=== PATIENT | male | born 1985 | race Caucasian/White ===

== ENCOUNTER 2018-03-08 11:47 | Emergency (ER) | payer SELFPAY ==
[~2018-03-08] VITALS: Ht 172.7 cm; Wt 76.0 kg
[2018-03-08 11:55] VITALS: BP 137/75
[2018-03-08] MEDS ORDERED: DIPH,PERTUSS(ACELL),TET VAC/PF 0.5 ML IM-VACC ONE (12:30)
== END 2018-03-08 13:20 | disposition left against medical advice (07) ==
LOC: ED 12:00
DX: S02.609B Fracture of mandible, unspecified, initial encounter for open fracture (principal); Y04.0XXA Assault by unarmed brawl or fight, initial encounter; Y93.89 Activity, other specified; Y92.410 Unspecified street and highway as the place of occurrence of the external cause; Y99.8 Other external cause status
CPT/HCPCS: 99283

== ENCOUNTER 2019-05-09 16:31 | Emergency (ER) | payer SELFPAY ==
[~2019-05-09] VITALS: Ht 177.8 cm; Wt 79.5 kg
[2019-05-09 16:53] VITALS: BP 95/58
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
[2019-05-09 17:41] LABS: BASOPHILS # (AUTO) 0.04 x10^3/uL (0-0.1); BASOPHILS % (AUTO) 0 % (0-1); EOSINOPHILS # (AUTO) 0.12 x10^3/uL (0-0.4); EOSINOPHILS % (AUTO) 1 % (1-7); LYMPHOCYTES # (AUTO) 1.35 x10^3/uL (1-3.4); LYMPHOCYTES % (AUTO) 12 % (22-44); MD NO; MEAN CORPUSCULAR HEMOGLOBIN 29.2 pg (27.5-34.5); MEAN CORPUSCULAR HGB CONC 33.3 g/dL (33.2-36.2); MEAN CORPUSCULAR VOLUME 87.8 fL (81-97); MEAN PLATELET VOLUME 9.8 fL (7.4-10.4); MONOCYTES # (AUTO) 0.29 x10^3/uL (0.2-0.8); MONOCYTES % (AUTO) 3 % (2-9); NEUTROPHILS # (AUTO) 9.81 x10^3/uL (1.8-6.8); NEUTROPHILS % (AUTO) 85 % (42-75); PLATELET COUNT 235 x10^3/uL (130-400); RED BLOOD COUNT 4.75 x10^6/uL (4.38-5.82)
[2019-05-09 17:48] LABS: ALANINE AMINOTRANSFERASE 82 U/L (12-78); ALBUMIN 4.2 g/dL (3.4-5.0); ANION GAP 9 mmol/L (5-15); CALCIUM 8.7 mg/dL (8.5-10.1); CHLORIDE 109 mmol/L (98-107); CREATININE 0.95 mg/dL (0.7-1.3)
--- NOTE | 2019-05-09 17:51 | NUR ---
SITTER AT BEDSIDE FOR SAFETY. PT CLIMBED OUT OF BED AND ABLE TO WALK DOWN HALLWAY TO AMBULANCE BAY VERBALIZING DESIRE TO LEAVE. PT IV CATHETER FOUND IN BED. SECURITY TO BEDSIDE. RESTRAINTS IN PLACE. DR HOUGH VISUALIZED SITUATION
[2019-05-09 17:53] LABS: ALKALINE PHOSPHATASE 63 U/L (45-117); BILIRUBIN,TOTAL 0.2 mg/dL (0.2-1.0); TOTAL PROTEIN 7.2 g/dL (6.4-8.2); TROPONIN I < 0.015 ng/mL (0.000-0.045)
[2019-05-09] MEDS ORDERED: SODIUM CHLORIDE FLUSH 10ML SYR IVF ONE (18:00)
[2019-05-09 18:03] LABS: SALICYLATE LEVEL < 1.7 mg/dL (2.8-20.0)
--- NOTE | 2019-05-09 18:44 | NUR ---
RESTRAINTS DC'D. PT COOPERATIVE AND APPROPRIATE TO SITUATION. PT AMBULATED APPROX 100FT IN HALLWAY AND TOLERATED WELL, STEADY GAIT.
[2019-05-09 18:48] LABS: MICROSCOPIC NOT IND
[2019-05-09 18:50] LABS: CULTURE INDICATED? NO
[2019-05-09 18:59] LABS: AMPHETAMINE SCREEN, URINE Negative (Negative); BARBITURATE SCREEN, URINE Negative (Negative); BENZODIAZEPINE SCREEN, URINE Negative (Negative); CANNABINOID SCREEN, URINE Positive (Negative); COCAINE SCREEN, URINE Negative (Negative); METHADONE SCREEN, URINE Negative (Negative); OPIATE SCREEN, URINE Negative (Negative)
--- NOTE | 2019-05-09 19:14 | NUR ---
pt not found in room, hallway, or bathroom. dc without paperwork
== END 2019-05-09 19:16 | disposition home or self-care (01) ==
LOC: ED 18:00
DX: R41.82 Altered mental status, unspecified (principal)
CPT/HCPCS: 36415; 70450; 71045; 80053; 80307; 81003; 82140; 83605; 84484; 85025; 93005; 99284

== ENCOUNTER 2019-05-13 06:10 | Emergency (ER) | payer SELFPAY ==
[~2019-05-13] VITALS: Ht 170.2 cm; Wt 84.9 kg
[2019-05-13 06:14] VITALS: BP 124/82
== END 2019-05-13 06:29 | disposition left against medical advice (07) ==
LOC: ED 06:20
DX: L55.9 Sunburn, unspecified (principal); Z53.21 Procedure and treatment not carried out due to patient leaving prior to being seen by health care provider

== ENCOUNTER 2019-09-19 15:11 | Emergency (ER) | payer SELFPAY ==
[~2019-09-19] VITALS: Ht 172.7 cm; Wt 75.0 kg
--- NOTE | 2019-09-19 15:26 | NUR ---
Patient brought in by EMS escorted by Warren BROOKS, patient is to go directly to intermediate upon discharge - call dispatch who will send officer to pick him up when he is ambulatory. Dispatch: [phone]
[2019-09-19] MEDS ORDERED: THIAMINE 100 MG/ML, 2ML IM ONE (16:00)
--- NOTE | 2019-09-19 16:20 | NUR ---
Patient resting in gurney with eyes closed, respirations appear even and without labor, patient appears to be asleep. Patient repositions himself independently.
--- NOTE | 2019-09-19 18:09 | NUR ---
Patient continues to rest, repositions independently, does not appear to be in acute distress at this time.
[2019-09-19 18:13] VITALS: BP 128/81
--- NOTE | 2019-09-19 18:18 | NUR ---
Patient is ambulatory, medically clear per TOMMIE Bertrand dispatch called.
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
== END 2019-09-19 18:30 | disposition home or self-care (01) ==
LOC: ED 18:24
DX: F10.120 Alcohol abuse with intoxication, uncomplicated (principal); F17.200 Nicotine dependence, unspecified, uncomplicated; Z88.6 Allergy status to analgesic agent
CPT/HCPCS: 99283

== ENCOUNTER 2021-02-25 00:41 | Emergency (ER) | payer MEDICAID ==
[~2021-02-25] VITALS: Ht 175.3 cm; Wt 88.0 kg
[2021-02-25 00:46] VITALS: BP 139/107
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
--- NOTE | 2021-02-25 01:08 | NUR ---
AT THIS TIME, PT WAKES UP AND TRIES TO SIT UP AND PULL LEATHER RESTRAINTS OFF. [employer] OFFICERS HAVE COME BY, AND STATED THEY WILL BE TAKING PT INTO CUSTODY WHEN HE IS MEDICALLY CLEARED. [employer] DISPATCH NUMBER: [id number]
--- NOTE | 2021-02-25 01:56 | NUR ---
BREAK RN. PT IN [facility] IN 4 PT RESTRAINTS. PT WITH SLURRED SPEECH, UNABLE TO UNDERSTAND REQUEST. PT STILL FIGHTING TO TRY AND GET OUT OF RESTRAINTS. PT PULLING OFF PULSE OX, RN PLACED NEW ONE ON AND PT ABLE TO USE FINGERS TO SLIP IT OFF.
--- NOTE | 2021-02-25 02:10 | NUR ---
PTS RESTRAINTS LOGGED ON RESTRAINT LOG SHEET Q15MIN. PT AWAKE AND ALERT, AND SAYS HE'S READY TO GO. PT STATES HE WANTS THE LEATHER RESTRAINTS RELEASED. MD AWARE, AND BACK INTO PTS ROOM TO RE EVALUATE. PT TO BE D/C'D AT THIS TIME. [employer] DISPATCH CONTACTED TO SEND OFFICERS OVER TO LAUNDRY CLERK PT, HE IS ON A POLICE HOLD. SECURITY ADVISED OF D/C SO THEY CAN RELEASE THE LEATHER RESTRAINTS. SEE RESTRAINTS LOG SHEETS IN PAPER CHART.
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
== END 2021-02-25 03:04 | disposition home or self-care (01) ==
LOC: ED 01:11
DX: Z00.00 Encounter for general adult medical examination without abnormal findings (principal); F10.120 Alcohol abuse with intoxication, uncomplicated; Z72.9 Problem related to lifestyle, unspecified
CPT/HCPCS: 99283

== ENCOUNTER 2021-07-12 09:41 | Emergency (ER) | payer MEDICAID ==
[~2021-07-12] VITALS: Ht 177.8 cm; Wt 75.0 kg
--- NOTE | 2021-07-12 10:06 | NUR ---
PT brought in from custodial as L2K d/t paranoid delusions. pt refusing to speak at this time. WILL Mezas at bedside for eval. Safety precautions in place.
[2021-07-12 11:15] LABS: BASOPHILS % (AUTO) 0 % (0-1); EOSINOPHILS % (AUTO) 1 % (1-7); LYMPHOCYTES % (AUTO) 13 % (22-44); MEAN CORPUSCULAR HEMOGLOBIN 28.5 pg (27.5-34.5); MEAN CORPUSCULAR HGB CONC 32.7 g/dL (33.2-36.2); MEAN PLATELET VOLUME 10.5 fL (7.4-10.4); MONOCYTES % (AUTO) 5 % (2-9); NEUTROPHILS % (AUTO) 81 % (42-75); PLATELET COUNT 319 x10^3/uL (130-400); RED BLOOD COUNT 5.66 x10^6/uL (4.38-5.82); RED CELL DISTRIBUTION WIDTH 13.1 % (9.4-14.8)
--- NOTE | 2021-07-12 11:20 | NUR ---
Rikki VILLAFUERTE at bedside for eval.
[2021-07-12 11:21] LABS: ALANINE AMINOTRANSFERASE 74 U/L (12-78); ALBUMIN 4.2 g/dL (3.4-5.0); ANION GAP 6 mmol/L (5-15); CALCIUM 9.8 mg/dL (8.5-10.1); CHLORIDE 106 mmol/L (98-107); CREATININE 0.83 mg/dL (0.7-1.3)
[2021-07-12 11:23] LABS: ALKALINE PHOSPHATASE 77 U/L (45-117); BILIRUBIN,TOTAL 0.4 mg/dL (0.2-1.0); SALICYLATE LEVEL 2.3 mg/dL (2.8-20.0)
[2021-07-12 11:53] LABS: AMPHETAMINE SCREEN, URINE Negative (Negative); BARBITURATE SCREEN, URINE Negative (Negative); BENZODIAZEPINE SCREEN, URINE Negative (Negative); CANNABINOID SCREEN, URINE Negative (Negative); COCAINE SCREEN, URINE Negative (Negative); METHADONE SCREEN, URINE Negative (Negative); OPIATE SCREEN, URINE Negative (Negative)
--- NOTE | 2021-07-12 13:41 | NUR ---
Report from Marina MCNEILL.
--- NOTE | 2021-07-12 14:08 | NUR ---
PT STANDING IN ROOM, ALL NEEDS MET AT THIS TIME. SITTER OUTSIDE OF ROOM FOR SAFETY MONITOING.
--- NOTE | 2021-07-12 15:11 | NUR ---
PT COOPERATIVE WITH STAFF. SITTER WATCHING FOR SAFETY.
--- NOTE | 2021-07-12 16:33 | NUR ---
PT SITTING ON GURNEY IN NAD, SITTER WATCHING FOR SAFETY.
--- NOTE | 2021-07-12 17:54 | NUR ---
[facility] DOES NOT HAVE ANY MALE BEDS AT THIS TIME
--- NOTE | 2021-07-12 17:55 | NUR ---
call from Shantelle at [facility], pt was accepted at [facility], accepting MD. Rainey.
--- NOTE | 2021-07-12 17:59 | NUR ---
Report to Kay MCNEILL at [facility].
--- NOTE | 2021-07-12 18:57 | NUR ---
AWAITING TRANSPORT TO [facility] AFTER 8PM. REPORT TO WAYNE MCNEILL.
--- NOTE | 2021-07-12 19:00 | NUR ---
VS updated. BH transfer packet completed w/ updated VS. Pt resting comfortably, denies needs.
[2021-07-12 19:14] VITALS: BP 100/57
--- NOTE | 2021-07-12 20:00 | NUR ---
Pt resting at this time. Awaiting [facility] transport.
--- NOTE | 2021-07-12 20:37 | NUR ---
Pt left w/ [facility] transport team. All personal belongings with [facility]. Pt discharged with original copy of legal hold and all paperwork. Transfer completed.
== END 2021-07-12 20:40 | disposition home or self-care (01) ==
LOC: ED 12:49
DX: F23 Brief psychotic disorder (principal); F22 Delusional disorders
CPT/HCPCS: 36415; 80053; 80299; 80307; 80320; 80329; 85025; 99285; G0480